=== PATIENT | male | born 1965 | race Caucasian/White ===

== ENCOUNTER 2020-12-15 13:55 | Emergency (ER) | payer BC, OTHER ==
[~2020-12-15] VITALS: Ht 170.2 cm; Wt 81.6 kg
[2020-12-15] MEDS ORDERED: DEXAMETHASONE SOD PHOS 10 MG/1 ML VIAL IM NR (14:30)
[2020-12-15] MEDS ORDERED: KETOROLAC TROMETHAMINE 60 MG/2 ML VIAL IM NR (14:30)
[2020-12-15] MEDS ORDERED: HYDROCODONE/APAP 7.5MG-325MG 1 EA TAB PO NR (14:30)
[2020-12-15] MEDS ORDERED: DEXAMETHASONE SOD PHOS 10 MG/1 ML VIAL ONE (14:46)
[2020-12-15] MEDS ORDERED: HYDROCODONE/APAP 7.5MG-325MG 1 EA TAB ONE (14:46)
== END 2020-12-15 15:20 | disposition home or self-care (01) ==
LOC: ER 15:11
DX: M25.561 Pain in right knee (principal); M17.11 Unilateral primary osteoarthritis, right knee; M10.9 Gout, unspecified
CPT/HCPCS: 99283; J1100; J1885